=== PATIENT | female | born 1990 | race Hispanic/Latino ===

== ENCOUNTER 2023-05-19 15:07 | Day surgery (SDC) | payer MEDICAID, OTHER ==
[2023-05-19 15:47] VITALS: BMI 29.4
== END 2023-05-19 16:05 | disposition home health service (06) ==
LOC: CSHLD/OP 15:07
PROVIDERS: ATTEND Family Medicine
DX: O32.1XX0 Maternal care for breech presentation, not applicable or unspecified (principal); Z3A.37 37 weeks gestation of pregnancy
CPT/HCPCS: 76815; 99282

== ENCOUNTER 2025-04-02 11:43 | Inpatient (IN) | payer OTHER ==
[2025-04-02] MEDS ORDERED: Diphenoxylate HCl/Atropine Tablet PO PRN (12:53)
[2025-04-02] MEDS ORDERED: hydrALAZINE 20 MG/ML VIAL SLOW IVP PRN (12:53)
[2025-04-02] MEDS ORDERED: Carboprost 250 MCG/ML AMP IM PRN (12:53)
[2025-04-02] MEDS ORDERED: Acetaminophen 500 MG TAB PO PRN (12:53)
[2025-04-02] MEDS ORDERED: Tranexamic Acid 1,000 MG/10 ML VIAL IVP PRN (12:53)
[2025-04-02] MEDS ORDERED: Methylergonovine 0.2 MG/ML VIAL IM PRN (12:53)
[2025-04-02] MEDS ORDERED: Ondansetron PF 4 MG/2 ML Vial IVP PRN (12:53)
[2025-04-02] MEDS ORDERED: Oxytocin 30 units/NS 500 ML 500 ML IV SCH (13:00)
[2025-04-02 13:31] LABS: Hematocrit 36.8 % (34.9-44.5); Hemoglobin 13.0 g/dL (12.0-15.5); Mean Corpuscular Hemoglobin 32.3 pg (27.0-33.0); Mean Corpuscular Volume 91.3 fL (81.6-98.3); Platelet Count 248 10x3/uL (150-450); Red Blood Cell (RBC) Count 4.03 10x6/uL (3.90-5.03); White Blood Cell (WBC) Count 9.64 10x3/uL (3.5-10.5)
[2025-04-02] MEDS: NIFEdipine 10 MG CAP PO PRN (13:45)
[2025-04-02 14:08] LABS: Hep B Surf Ag - L&D Non-Reactive S/CO (NonReactive)
[2025-04-02 14:10] LABS: Syphilis Antibody Index 0.11 S/CO (<1.00 Non-Reactive)
[2025-04-02 17:13] VITALS: BMI 29.0
[2025-04-02] MEDS: NIFEdipine 10 MG CAP PO SCH (19:07)
[2025-04-02 22:55] LABS: Glucose, Urine (Dipstick) Normal (Negative); Leukocyte Negative (Negative); Protein, Urine (Dipstick) 15 mg/dl (Neg-Trace); Specific Gravity, Urine 1.005 (1.005-1.030)
[2025-04-02 23:00] LABS: CAUTI Indications for Culture Pregnancy; RBC/HPF 0-3 HPF (0-3); WBC/HPF None Seen HPF (0-3)
[2025-04-02 23:01] LABS: Urine Culture Reflex Yes Yes
[2025-04-03] MEDS ORDERED: NIFEdipine 10 MG CAP PO SCH (14:00)
[2025-04-04] MEDS ORDERED: hydrALAZINE 20 MG/ML VIAL SLOW IVP PRN (20:00)
[2025-04-05 07:43] VITALS: BP 101/53; TEMP 98.3
== END 2025-04-05 17:50 | disposition home or self-care (01) | DRG 833 ==
LOC: CSHLD/OP 11:43 → CSHLD 12:49
PROVIDERS: ADMIT Family Medicine; ATTEND Family Medicine
DX: O44.13 Complete placenta previa with hemorrhage, third trimester (principal); Z3A.33 33 weeks gestation of pregnancy
CPT/HCPCS: 76819; 81001; 85027; 86780; 86850; 86900; 86901; 87086; 87340; 99285; J0702; J7120

== ENCOUNTER 2025-04-19 07:44 | Inpatient (IN) | payer OTHER ==
[2025-04-19] MEDS ORDERED: hydrALAZINE 20 MG/ML VIAL SLOW IVP PRN ×2 (08:13→16:06)
[2025-04-19] MEDS ORDERED: Tranexamic Acid 1,000 MG/10 ML VIAL IVP PRN (08:13)
[2025-04-19] MEDS ORDERED: Methylergonovine 0.2 MG/ML VIAL IM PRN (08:13)
[2025-04-19] MEDS ORDERED: Carboprost 250 MCG/ML AMP IM PRN (08:13)
[2025-04-19] MEDS ORDERED: Bicitra 30 ML UDCUP PO PRN (08:13)
[2025-04-19] MEDS ORDERED: Diphenoxylate HCl/Atropine Tablet PO PRN (08:13)
[2025-04-19] MEDS ORDERED: Ondansetron PF 4 MG/2 ML Vial IVP PRN ×3 (08:13→16:06)
[2025-04-19] MEDS ORDERED: Oxytocin 30 units/NS 500 ML 500 ML IV SCH (08:15)
[2025-04-19 09:35] VITALS: BMI 29.0
[2025-04-19 09:56] LABS: Hematocrit 38.6 % (34.9-44.5); Hemoglobin 13.4 g/dL (12.0-15.5); Mean Corpuscular Hemoglobin 32.1 pg (27.0-33.0); Mean Corpuscular Volume 92.6 fL (81.6-98.3); Platelet Count 252 10x3/uL (150-450); Red Blood Cell (RBC) Count 4.17 10x6/uL (3.90-5.03); White Blood Cell (WBC) Count 9.71 10x3/uL (3.5-10.5)
[2025-04-19] MEDS: Famotidine/PF 20 mg/2ml Vial SLOW IVP PRN (10:01)
[2025-04-19 10:26] LABS: Syphilis Antibody Index 0.06 S/CO (<1.00 Non-Reactive)
[2025-04-19 10:27] LABS: Hep B Surf Ag - L&D Non-Reactive S/CO (NonReactive)
[2025-04-19] MEDS ORDERED: diphenhydrAMINE 50 MG/ML VIAL IVP PRN (13:17)
[2025-04-19] MEDS ORDERED: Ketorolac Tromethamine 30 MG (1 mL) VIAL IVP PRN (13:17)
[2025-04-19] MEDS ORDERED: Meperidine HCl/PF 25 MG (1 mL) VIAL SLOW IVP PRN (13:17)
[2025-04-19] MEDS: Ketorolac Tromethamine 30 MG (1 mL) VIAL IVP SCH ×2 (14:04→20:03)
[2025-04-19] MEDS: Methylergonovine 0.2 MG/ML VIAL ONE (15:37)
[2025-04-19] MEDS: Tranexamic Acid 1,000 MG/10 ML VIAL ONE (15:37)
[2025-04-19] MEDS ORDERED: Boostrix 0.5 ML (Tdap) VIAL (>/=7 yrs of age) IM ONE (16:06)
[2025-04-19] MEDS ORDERED: Lanolin Ointment 7 GM TUBE TOP PRN (16:06)
[2025-04-19] MEDS ORDERED: diphenhydrAMINE 25 MG CAP PO PRN (16:06)
[2025-04-19] MEDS: Dexamethasone 10 MG/ML VIAL ONE (16:28)
[2025-04-19] MEDS: Ondansetron PF 4 MG/2 ML Vial ONE (16:28)
[2025-04-19] MEDS: Oxytocin 10 UNITS/ML VIAL ONE (16:29)
[2025-04-19] MEDS: PHENYLEPHRINE-NS 100 MCG/ML 10 ML SYRINGE ONE (16:29)
[2025-04-19 17:51] LABS: Platelet Count 222.0 10x3/uL (150-450)
[2025-04-19 18:42] LABS: D-Dimer Test 5.9 mcg/mL (0.19-0.50); Fibrinogen 446.0 mg/dL (220-504); INR-International Normal Ratio 1.0; PTT 28.0 sec (22.0-33.0); Prothrombin Time 10.6 sec (9.5-12.1)
[2025-04-19] MEDS: Ondansetron PF 4 MG/2 ML Vial IVP PRN (19:10)
[2025-04-19] MEDS: Ferrous Sulfate 325 MG TAB PO SCH (21:15)
[2025-04-20] MEDS ORDERED: Meperidine HCl/PF 25 MG (1 mL) VIAL IM PRN (01:30)
[2025-04-20] MEDS ORDERED: HYDROcodone/Acetaminophen 5/325 mg Tablet PO PRN (01:30)
[2025-04-20] MEDS: Simethicone Chewable 80 MG TAB PO PRN (02:31)
[2025-04-20] MEDS: HYDROcodone/Acetaminophen 5/325 mg Tablet PO PRN (04:24)
[2025-04-20 05:46] LABS: Hematocrit 27.6 % (34.9-44.5); Hemoglobin 9.6 g/dL (12.0-15.5); Mean Corpuscular Hemoglobin 32.2 pg (27.0-33.0); Mean Corpuscular Volume 92.6 fL (81.6-98.3); Platelet Count 199 10x3/uL (150-450); Red Blood Cell (RBC) Count 2.98 10x6/uL (3.90-5.03); White Blood Cell (WBC) Count 13.36 10x3/uL (3.5-10.5)
[2025-04-20] MEDS: Ibuprofen 800 MG TAB PO SCH (13:35)
[2025-04-21] MEDS: Bisacodyl 10 MG SUPP PR PRN (08:46)
[2025-04-22 07:39] VITALS: BP 94/50; TEMP 98
== END 2025-04-22 11:40 | disposition home or self-care (01) | DRG 788 ==
LOC: CSHLD/OP 07:44 → CSHLD 08:45 → CSHPP 15:34
PROVIDERS: ADMIT Family Medicine; ATTEND Family Medicine
PROC: 10D00Z1 Extraction of Products of Conception, Low, Open Approach (ICD-10-PCS; principal; 2025-04-19)
DX: O44.53 Low lying placenta with hemorrhage, third trimester (principal); Z3A.35 35 weeks gestation of pregnancy; Z37.0 Single live birth
CPT/HCPCS: 36415; 51702; 85027; 85049; 85300; 85362; 85384; 85610; 85730; 86780; 86850; 86900; 86901; 87340; 99285; C1889; J1100; J1308; J1885; J2210; J2270; J2274; J2405; J2590; J7120